=== PATIENT | male | born 1965 | race Asian ===

== ENCOUNTER 2018-06-22 13:35 | Emergency (ER) | payer OTHER ==
[~2018-06-22] VITALS: Ht 177.8 cm; Wt 108.9 kg
[~2018-06-22 13:35] MED LIST: CALTRATE 600+D1 TAB OR; CEPH500C20 PO; FLUT0.05 NAS; LEVO0.0218 PO; UNITHROID200 MCG PO; [UNRECOGNIZED DRUG - OTHER] RE
[2018-06-22 13:52] VITALS: TEMP 97.73
[2018-06-22 15:08] LABS: PLATELET COUNT 256 K/uL (142-355)
[2018-06-22 15:29] LABS: POTASSIUM 3.9 mmol/L (3.6-5.2)
[2018-06-22 16:27] LABS: PARTIAL THROMBOPLASTIN TIME 27.3 SECONDS (24.5-33.6)
[2018-06-22 16:45] VITALS: BP 132/86
== END 2018-06-22 16:50 | disposition home or self-care (01) ==
LOC: ED 13:35
PROVIDERS: Family Medicine
DX: R42 Dizziness and giddiness (principal)
CPT/HCPCS: 36415; 80053; 81000; 85027; 85610; 85730; 96374; 99284; J2405

== ENCOUNTER 2019-06-22 09:22 | Outpatient (CLI) | payer OTHER | END 2019-06-22 23:28 | disposition home or self-care (01) | LOC: LABW 09:22 | DX: E03.9 Hypothyroidism, unspecified (principal); E78.2 Mixed hyperlipidemia; E66.9 Obesity, unspecified; R73.03 Prediabetes | CPT/HCPCS: 36415; 84439; 84443 ==

== ENCOUNTER 2019-10-27 17:47 | Outpatient (CLI) | payer OTHER | END 2019-10-27 20:56 | disposition home or self-care (01) | LOC: LABW → LAB 17:47 | DX: E03.9 Hypothyroidism, unspecified (principal) | CPT/HCPCS: 84443 ==

== ENCOUNTER 2020-02-08 10:40 | Outpatient (CLI) | payer OTHER ==
[2020-02-08 11:17] LABS: POTASSIUM 4.2 mmol/L (3.6-5.2)
== END 2020-02-08 19:17 | disposition home or self-care (01) ==
LOC: RAD 10:40
PROVIDERS: Nurse Practitioner Family
DX: R61 Generalized hyperhidrosis (principal); R05 Cough
CPT/HCPCS: 36415; 80053; 85379

== ENCOUNTER 2020-02-21 07:44 | Outpatient (CLI) | payer OTHER | END 2020-02-21 21:25 | disposition home or self-care (01) | LOC: LABW 07:44 | DX: E03.9 Hypothyroidism, unspecified (principal); E78.2 Mixed hyperlipidemia; E66.9 Obesity, unspecified; R73.03 Prediabetes | CPT/HCPCS: 36415; 84439; 84443 ==

== ENCOUNTER 2020-04-26 14:37 | Outpatient (CLI) | payer OTHER | END 2020-04-26 22:06 | disposition home or self-care (01) | LOC: RAD 14:37 | DX: U07.1 COVID-19 (principal) ==

== ENCOUNTER 2020-05-24 14:47 | Outpatient (CLI) | payer OTHER | END 2020-05-24 23:46 | disposition home or self-care (01) | LOC: RAD 14:47 | DX: R51 Headache (principal) ==

== ENCOUNTER 2020-08-13 08:36 | Outpatient (CLI) | payer OTHER | END 2020-08-13 21:23 | disposition home or self-care (01) | LOC: LABW 08:36 | PROVIDERS: ATTEND Psychiatry & Neurology Neurology | DX: R42 Dizziness and giddiness (principal) | CPT/HCPCS: 36415; 82533 ==

== ENCOUNTER 2020-08-27 09:21 | Outpatient (CLI) | payer OTHER | END 2020-08-27 21:37 | disposition home or self-care (01) | LOC: RAD 09:21 | PROVIDERS: ATTEND Nurse Practitioner Family | DX: Z03.89 Encounter for observation for other suspected diseases and conditions ruled out (principal) ==

== ENCOUNTER 2020-08-29 10:32 | Inpatient (IN) | payer OTHER ==
[~2020-08-29] VITALS: Ht 177.8 cm; Wt 112.1 kg
[2020-08-29 11:54] VITALS: BP 144/85; TEMP 102.9; Ht 177.8 cm; Wt 112.1 kg
[2020-08-29 12:41] LABS: PLATELET COUNT 170 K/uL (142-355)
[2020-08-29 13:13] LABS: POTASSIUM 4.5 mmol/L (3.6-5.2); SODIUM 137 mmol/L (136-145)
[2020-08-29 16:00] VITALS: BP 129/79; TEMP 99.6
[2020-08-29 20:00] VITALS: BP 128/82; TEMP 101.3
[2020-08-30] VITALS (12 sets, daily range): BP systolic 106–150; BP diastolic 70–95; TEMP 97.5–98.1
[2020-08-30 08:12] LABS: PLATELET COUNT 166 K/uL (142-355)
[2020-08-30 08:29] LABS: POTASSIUM 4.7 mmol/L (3.6-5.2)
[2020-08-30] MEDS ORDERED: LIPITOR10 MG PO (18:40)
[2020-08-30] MEDS ORDERED: EUTHYROX150 MCG PO (18:42)
[2020-08-30] MEDS ORDERED: ALPR0.2566 PO (18:46)
[2020-08-31] VITALS: BP 117/74; TEMP 98.2
[2020-08-31 04:00] VITALS: BP 138/90; TEMP 97.8
[2020-08-31 06:05] LABS: PLATELET COUNT 197 K/uL (142-355)
[2020-08-31 06:23] LABS: POTASSIUM 4.9 mmol/L (3.6-5.2)
[2020-08-31 08:00] VITALS: BP 119/78; TEMP 98.2
[2020-08-31 12:00] VITALS: BP 130/90; TEMP 97.8
[2020-08-31 16:00] VITALS: BP 120/87; TEMP 97.8
[2020-08-31 20:00] VITALS: BP 130/92; TEMP 98.6
[2020-09-01] VITALS (7 sets, daily range): BP systolic 103–132; BP diastolic 65–93; TEMP 97.9–98.6
[2020-09-02 04:00] VITALS: BP 114/66; TEMP 98.2
[2020-09-02 08:00] VITALS: BP 114/68; TEMP 98.1
[2020-09-02 08:45] LABS: PLATELET COUNT 330 K/uL (142-355)
[2020-09-02 08:58] LABS: POTASSIUM 4.5 mmol/L (3.6-5.2)
[2020-09-02 12:00] VITALS: BP 124/92; TEMP 97.8
[2020-09-02 16:00] VITALS: BP 123/87; TEMP 97.8
[2020-09-02 20:00] VITALS: BP 120/86; TEMP 98.3
[2020-09-03] VITALS (7 sets, daily range): BP systolic 112–138; BP diastolic 73–94; TEMP 97.4–98.2
[2020-09-03 13:08] LABS: PLATELET COUNT 375 K/uL (142-355)
[2020-09-03 13:25] LABS: POTASSIUM 4.5 mmol/L (3.6-5.2)
[2020-09-04 03:22] VITALS: BP 112/79; TEMP 98.6
[2020-09-04 06:27] LABS: POTASSIUM 4.7 mmol/L (3.6-5.2)
[2020-09-04 06:28] LABS: PLATELET COUNT 329 K/uL (142-355)
[2020-09-04 08:00] VITALS: BP 140/98; TEMP 97.9
[2020-09-04 12:00] VITALS: BP 123/80; TEMP 98.1
[2020-09-04] MEDS ORDERED: ASCO500T18 PO (12:53)
[2020-09-04] MEDS ORDERED: CHOL100034 PO (12:55)
[2020-09-04] MEDS ORDERED: FAMOTIDINE20 MG PO (12:55)
[2020-09-04] MEDS ORDERED: FLUC150T PO (12:56)
[2020-09-04] MEDS ORDERED: ZINC220C4 PO (12:56)
== END 2020-09-04 14:45 | disposition home or self-care (01) | DRG 177 ==
LOC: MED/SURG 10:32
PROVIDERS: ADMIT Family Medicine; ATTEND Family Medicine
DX: U07.1 COVID-19 (principal); J18.8 Other pneumonia, unspecified organism; J96.01 Acute respiratory failure with hypoxia; B37.0 Candidal stomatitis; I31.9 Disease of pericardium, unspecified; E03.8 Other specified hypothyroidism; E78.49 Other hyperlipidemia; E88.09 Other disorders of plasma-protein metabolism, not elsewhere classified; I10 Essential (primary) hypertension
CPT/HCPCS: 36415; 80053; 81000; 82550; 82728; 83735; 83880; 84100; 84443; 84484; 85007; 85027; 85379; 85610; 86140; 86900; 86901; 87040; 87502; 87635; 93005; 94667; 94668; 94760; J0132; J0456; J0696; J1100; J1650; J1885; J2550; P9017; U0003

== ENCOUNTER 2020-09-18 08:52 | Outpatient (CLI) | payer OTHER ==
[~2020-09-18 08:52] MED LIST changes: +ALPR0.2566 PO; +ASCO500T18 PO; +CHOL100034 PO; +EUTHYROX150 MCG PO; +FAMOTIDINE20 MG PO; +FLUC150T PO; +LIPITOR10 MG PO; +ZINC220C4 PO
== END 2020-09-18 23:15 | disposition home or self-care (01) ==
LOC: RAD 08:52
PROVIDERS: ATTEND Family Medicine
DX: U07.1 COVID-19 (principal)

== ENCOUNTER 2021-02-26 08:14 | Outpatient (CLI) | payer OTHER | END 2021-02-26 17:00 | disposition home or self-care (01) | LOC: LABW 08:14 | PROVIDERS: ATTEND Internal Medicine | DX: E03.9 Hypothyroidism, unspecified (principal); E78.2 Mixed hyperlipidemia; R73.03 Prediabetes; E66.9 Obesity, unspecified | CPT/HCPCS: 36415; 84439; 84443 ==

== ENCOUNTER 2021-03-14 08:37 | Outpatient (CLI) | payer OTHER | END 2021-03-14 19:07 | disposition home or self-care (01) | LOC: US 08:37 | PROVIDERS: ATTEND Nurse Practitioner Family | DX: Z13.6 Encounter for screening for cardiovascular disorders (principal) ==

== ENCOUNTER 2021-05-16 15:34 | Outpatient (CLI) | payer OTHER | END 2021-05-16 20:15 | disposition home or self-care (01) | LOC: RAD 15:34 | PROVIDERS: ATTEND Nurse Practitioner Family | DX: M54.17 Radiculopathy, lumbosacral region (principal) ==

== ENCOUNTER 2021-11-26 07:49 | Outpatient (CLI) | payer OTHER | END 2021-11-26 18:54 | disposition home or self-care (01) | LOC: LABW 07:49 | PROVIDERS: ATTEND Neurological Surgery | DX: D32.0 Benign neoplasm of cerebral meninges (principal) | CPT/HCPCS: 36415; 82565; 84520 ==

== ENCOUNTER 2022-01-30 11:31 | Outpatient (CLI) | payer OTHER | END 2022-01-30 18:58 | disposition home or self-care (01) | LOC: LABW 11:31 | PROVIDERS: ATTEND Internal Medicine | DX: E03.9 Hypothyroidism, unspecified (principal); R73.03 Prediabetes; E78.2 Mixed hyperlipidemia; E66.9 Obesity, unspecified | CPT/HCPCS: 36415; 84439; 84443 ==

== ENCOUNTER 2022-05-16 09:21 | Outpatient (CLI) | payer OTHER | END 2022-05-16 22:08 | disposition home or self-care (01) | LOC: RAD 09:21 | PROVIDERS: ATTEND Nurse Practitioner Primary Care | DX: R20.2 Paresthesia of skin (principal) ==

== ENCOUNTER 2023-06-05 08:32 | Outpatient (CLI) | payer OTHER | END 2023-06-05 18:56 | disposition home or self-care (01) | LOC: US 08:32 | PROVIDERS: ATTEND Nurse Practitioner Family | DX: R22.2 Localized swelling, mass and lump, trunk (principal) ==